=== PATIENT | female | born 1980 | race Caucasian/White ===

== ENCOUNTER → 2017-09-17 07:15 | Outpatient (CLI) | payer BC | END | disposition home or self-care (01) | LOC: D.US 07:00 | DX: R10.9 Unspecified abdominal pain (principal) ==

== ENCOUNTER → 2017-10-01 14:38 | Outpatient (CLI) | payer BC ==
[2017-10-07 03:11] LABS: 5HIAA - 24HR 4.1 mg/24 hr (0.0-14.9); 5HIAA - UR 6.3 mg/L (Undefined)
== END | disposition home or self-care (01) ==
LOC: D.LAB 14:38
PROVIDERS: Dermatology MOHS-Micrographic Surgery
DX: E34.0 Carcinoid syndrome (principal); L50.9 Urticaria, unspecified

== ENCOUNTER → 2019-06-16 11:59 | Outpatient (CLI) | payer OTHER | END | disposition home or self-care (01) | LOC: D.RAD 11:59 | PROVIDERS: ATTEND Emergency Medicine | DX: R05 Cough (principal); J45.909 Unspecified asthma, uncomplicated ==